=== PATIENT | female | born 1985 | race Caucasian/White ===

== ENCOUNTER 2020-02-18 16:55 | Emergency (ER) | payer SELFPAY ==
[~2020-02-18] VITALS: Ht 157.5 cm; Wt 59.0 kg
--- NOTE | 2020-02-18 16:57 | NUR ---
JUANCARLOS FLAHERTY TAKEN TO BED 12
[2020-02-18 17:00] VITALS: BP 107/56
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
[2020-02-18] MEDS ORDERED: IBUPROFEN 400 MG TAB PO ONE (17:15)
[2020-02-18 17:24] VITALS: BP 107/56
--- NOTE | 2020-02-18 17:24 | NUR ---
Patient discharged with v/s stable. Written and verbal after care instructions given and explained. Patient alert, oriented and verbalized understanding of instructions. Ambulatory with steady gait. All questions addressed prior to discharge. ID band removed. Patient advised to follow up with PMD. Rx of IBUPROFEN, ACETAMINOPHEN given. Patient educated on indication of medication including possible reaction and side effects. Opportunity to ask questions provided and answered.
== END 2020-02-18 17:24 | disposition home or self-care (01) ==
LOC: MED 16:55
DX: S16.1XXA Strain of muscle, fascia and tendon at neck level, initial encounter (principal); V49.9XXA Car occupant (driver) (passenger) injured in unspecified traffic accident, initial encounter; Y93.89 Activity, other specified; Y92.89 Other specified places as the place of occurrence of the external cause; Y99.8 Other external cause status
CPT/HCPCS: 99282